=== PATIENT | male | born 1975 | race Caucasian/White ===

== ENCOUNTER 2018-09-16 23:39 | Emergency (ER) | payer OTHER ==
[~2018-09-16] VITALS: Ht 190.5 cm; Wt 74.8 kg
[2018-09-17 00:48] LABS: BASOPHILS 0.2 % (0.0-2.0); EOSINOPHILS 0.2 % (0.0-3.0); HEMATOCRIT 44.5 % (42.0-52.0); HEMOGLOBIN 15.3 gm/dL (14.0-18.0); LYMPHOCYTES 4.1 % (24.0-44.0); MCH 29.3 pg (26.0-34.0); MCHC 34.3 g/dL (28.0-37.0); MCV 85.4 fL (80.0-100.0); MONOCYTES 4.6 % (1.0-8.0); PLATELET COUNT 293 thou/uL (150-400); POLYS 90.9 % (36.0-66.0); RBC 5.22 mil/uL (4.50-6.00); RDW 12.7 % (10.5-14.5); WBC 17.6 thou/uL (4.0-11.0)
[2018-09-17 00:54] LABS: CALCIUM 8.9 mg/dL (8.5-10.1); CREATININE 1.4 mg/dL (0.7-1.3); POTASSIUM 3.6 mmol/L (3.5-5.1)
[2018-09-17] MEDS ORDERED: ZOFRAN ODT4 MG PO (02:02)
[2018-09-17 05:57] VITALS: BP 128/72
== END 2018-09-17 05:58 | disposition home or self-care (01) ==
LOC: ER 23:39
PROVIDERS: Emergency Medicine
DX: R11.10 Vomiting, unspecified (principal); E86.0 Dehydration